=== PATIENT | female | born 1940 | race Two or more races ===

== ENCOUNTER 2022-07-28 20:19 | Emergency (ER) | payer MEDICARE ==
[~2022-07-28] VITALS: Ht 147.3 cm; Wt 57.2 kg
--- NOTE | 2022-07-28 21:27 | NUR ---
DR LOZANO AT BEDSIDE
[2022-07-28 21:28] VITALS: BP 139/95
[2022-07-28] MEDS ORDERED: ACETAMINOPHEN ES 500 MG TABLET ONE (21:49)
[2022-07-28] MEDS ORDERED: ACETAMINOPHEN ES 500 MG TABLET PO ONE (22:00)
--- NOTE | 2022-07-28 22:28 | NUR ---
CALLED [facility] () [phone] NOT PICKING UP. CANNOT EVEN LEAVE VOICEMAIL.
== END 2022-07-29 | disposition home or self-care (01) ==
LOC: ER 20:32
DX: M79.642 Pain in left hand (principal); W01.0XXA Fall on same level from slipping, tripping and stumbling without subsequent striking against object, initial encounter; Y93.89 Activity, other specified; Y92.89 Other specified places as the place of occurrence of the external cause; Y99.8 Other external cause status
CPT/HCPCS: 73130-TC